=== PATIENT | male | born 1990 | race Caucasian/White ===

== ENCOUNTER 2021-03-22 08:26 | Outpatient (CLI) | payer OTHER ==
[~2021-03-22 08:26] MED LIST: PROZAC40 MG
== END 2021-03-22 08:27 | disposition home or self-care (01) ==
LOC: RX STUDY 08:26
DX: K22.5 Diverticulum of esophagus, acquired (principal)

== ENCOUNTER 2022-09-04 09:59 | Outpatient (CLI) | payer OTHER | END 2022-09-04 10:08 | disposition home or self-care (01) | LOC: SONOGRAMA 09:59 | DX: R10.30 Lower abdominal pain, unspecified (principal); M61.9 Calcification and ossification of muscle, unspecified ==

== ENCOUNTER 2023-01-14 14:28 | Outpatient (CLI) | payer OTHER | END 2023-01-14 14:30 | disposition home or self-care (01) | LOC: RAD 14:28 | PROVIDERS: ATTEND Physical Medicine & Rehabilitation | DX: M51.37 Other intervertebral disc degeneration, lumbosacral region (principal); M62.830 Muscle spasm of back; M25.551 Pain in right hip; M25.561 Pain in right knee ==

== ENCOUNTER 2024-04-27 12:15 | Outpatient (CLI) | payer OTHER | END 2024-04-27 12:22 | disposition home or self-care (01) | LOC: RAD 12:15 | PROVIDERS: ATTEND Physical Medicine & Rehabilitation | DX: R52 Pain, unspecified (principal); M06.9 Rheumatoid arthritis, unspecified; S60.222A Contusion of left hand, initial encounter; X58.XXXA Exposure to other specified factors, initial encounter; Y93.9 Activity, unspecified; Y92.9 Unspecified place or not applicable; Y99.9 Unspecified external cause status ==